=== PATIENT | female | born 1955 | race Caucasian/White ===

== ENCOUNTER → 2018-12-26 17:24 | Outpatient (CLI) | payer OTHER, SELFPAY ==
[2018-12-26 13:47] VITALS: BMI 35.6
[2018-12-30 17:08] LABS: HPV APTIMA, High Risk Negative (Negative)
== END ==
PROVIDERS: Family Provider Preventive Medicine Occupational Medicine; PCP Preventive Medicine Occupational Medicine; Referring Provider Obstetrics & Gynecology; Visit Provider Obstetrics & Gynecology
DX: Z12.4 Encounter for screening for malignant neoplasm of cervix (principal)
CPT/HCPCS: 87624; 88175; G0145

== ENCOUNTER → 2019-01-13 08:44 | Outpatient (CLI) | payer OTHER, SELFPAY ==
[2018-12-26 13:47] VITALS: BMI 35.6
[2019-01-13 10:11] LABS: Cholesterol 284 mg/dL (200); Follicle Stimulating Hormone 46.5 mIU/mL; Glucose 91 mg/dL (74-106); High Density Lipoprotein 53 mg/dL; T4 Free Direct 1.38 ng/dL (0.76-1.46); Thyroid Stim Hormone (TSH) 1.94 uIU/mL (0.358-3.74); Triglycerides 140 mg/dL; Very Low Density Lipoprotein 28 mg/dL (5-40)
[2019-01-16 10:03] LABS: Testosterone Free 20.3 pg/mL (0.0-4.2)
[2019-01-17 12:22] LABS: Vitamin D 1,25-Dihydroxy 36.9 pg/mL (19.9-79.3)
== END ==
PROVIDERS: Family Provider Preventive Medicine Occupational Medicine; PCP Preventive Medicine Occupational Medicine; Referring Provider Obstetrics & Gynecology; Visit Provider Obstetrics & Gynecology
DX: Z01.411 Encounter for gynecological examination (general) (routine) with abnormal findings (principal); N95.1 Menopausal and female climacteric states
CPT/HCPCS: 36415; 80061; 82652; 82670; 82947; 83001; 84402; 84439; 84443

== ENCOUNTER → 2019-08-07 08:39 | Outpatient (CLI) | payer MEDICARE, OTHER, SELFPAY ==
[2019-08-03 09:58] VITALS: BMI 35.1
[2019-08-07 09:40] LABS: AST(SGOT) 19 U/L (15-37); Alanine Aminotransfer ALT/SGPT 34 U/L (13-56); Albumin, Serum 3.6 g/dL (3.2-5.0); Alkaline Phosphatase 54 U/L (45-117); Bilirubin, Direct 0.15 mg/dL (0.00-0.30); Cholesterol 286 mg/dL (200); Globulin 3.4 g/dL (2.2-4.2); High Density Lipoprotein 63 mg/dL; Triglycerides 119 mg/dL; Very Low Density Lipoprotein 24 mg/dL (5-40)
== END ==
PROVIDERS: Family Provider Preventive Medicine Occupational Medicine; PCP Preventive Medicine Occupational Medicine; Referring Provider Internal Medicine Cardiovascular Disease; Visit Provider Internal Medicine Cardiovascular Disease
DX: E78.00 Pure hypercholesterolemia, unspecified (principal)
CPT/HCPCS: 36415; 80061; 80076

== ENCOUNTER → 2019-08-08 08:48 | Outpatient (CLI) | payer MEDICARE, OTHER, SELFPAY ==
[2019-08-03 09:58] VITALS: BMI 35.1
== END ==
PROVIDERS: Family Provider Preventive Medicine Occupational Medicine; PCP Preventive Medicine Occupational Medicine; Referring Provider Internal Medicine Cardiovascular Disease; Visit Provider Internal Medicine Cardiovascular Disease
DX: I47.1 Supraventricular tachycardia (principal); R00.1 Bradycardia, unspecified; R00.2 Palpitations
CPT/HCPCS: 93225; 93226

== ENCOUNTER → 2019-08-18 06:23 | Outpatient (CLI) | payer MEDICARE, OTHER, SELFPAY ==
[2019-08-03 09:58] VITALS: BMI 35.1
--- NOTE | 2019-08-18 06:24 | ECHOD_ITS ---
Reason For Study: Arrhythmia Procedure This was a 2D Doppler, Color Flow transthoracic echocardiogram. The exam was of adequate technical quality. Exam performed in department. Left Ventricle Normal LV size. Left ventricular systolic function is normal. The estimated ejection fraction is 65 %. No evidence for diastolic dysfunction. No regional wall motion abnormalities noted. Right Ventricle Normal RV size. Normal systolic function. Atria Normal left atrium. Normal right atrium. No doppler evidence for ASD. Mitral Valve There is mild mitral annular calcification. Extension of the mitral annular calcification onto the base of the posterior mitral valve leaflet. Mild (1+) mitral valve insufficiency. Tricuspid Valve Normal tricuspid valve. Mild tricuspid valve insufficiency. Right ventricular systolic pressure estimated to be 29 mmHg. Aortic Valve Trisinus/trileaflet aortic valve. Normal aortic valve. Pulmonic Valve The pulmonic valve is not well visualized. Trivial pulmonic valve insufficiency. Great Vessels Normal sized aortic root. Pericardium/Pleural No pericardial effusion. MMode/2D Measurements & Calculations LVIDd: 4.8 cm IVSd: 1.1 cm Ao root diam: 3.2 cm LVIDs: 2.9 cm LVPWd: 1.0 cm RVDd: 4.2 cm FS: 38.7 % LAV(MOD-bp): 57.6 ml LVAd ap4: 22.7 cm2 SV(MOD-sp4): 37.6 ml LAV(MOD-bp) Indexed: 30.1 ml/m2 EDV(MOD-sp4): 58.8 ml LAV(MOD-sp2): 76.3 ml EDV(sp4-el): 60.2 ml LAV(MOD-sp4): 43.2 ml LVAs ap4: 11.8 cm2 ESV(MOD-sp4): 21.2 ml ESV(sp4-el): 20.9 ml EF(MOD-sp4): 63.9 % EF(sp4-el): 65.3 % SV(sp4-el): 39.3 ml LA A4 area: 17.7 cm2 LA dimension(2D): 3.7 cm RA A4 area: 16.7 cm2 Doppler Measurements & Calculations MV E max james: 73.6 cm/sec Lat Peak E' James: 7.4 cm/sec Med Peak E' James: 7.0 cm/sec MV A max james: 61.5 cm/sec E/E' lat: 9.9 E/E' med: 10.6 MV E/A: 1.2 Ao V2 max: 148.8 cm/sec LV V1 max: 115.1 cm/sec PA V2 max: 80.2 cm/sec Ao max P.9 mmHg LV V1 max P.3 mmHg Ao V2 mean: 98.7 cm/sec Ao mean P.3 mmHg Ao V2 VTI: 35.3 cm PI end-d james: 74.2 cm/sec TR max james: 256.6 cm/sec TR max P.3 mmHg Interpretation Summary Left ventricular systolic function is normal. The estimated ejection fraction is 65 %. There is mild mitral annular calcification. Extension of the mitral annular calcification onto the base of the posterior mitral valve leaflet. Mild (1+) mitral valve insufficiency. Mild tricuspid valve insufficiency. Trivial pulmonic valve insufficiency. Right ventricular systolic pressure estimated to be 29 mmHg. No evidence for diastolic dysfunction. Ordering Physician: Luís Morse Referring Physician: Bob Snider Performed By: Hilda Kay, BLAKE, RVT
--- NOTE | 2019-08-18 10:44 | STRESSREP_ITS ---
Stress Test Report Date: 08-18-19 Procedure: Pharmacologic stress nuclear imaging study Indications: Palpitations; cardiac ectopy; PACs/PVCs; sinus bradycardia; PSVT Consent: Per the patient Procedure: The patient underwent pharmacologic (Regadenoson) evaluation with a peak heart rate of 81 beats per minute (52 %predicted maximal heart rate) and a peak blood pressure of 150/90 mmHg. The baseline ECG demonstrated sinus bradycardia: Nonspecific T wave abnormality. The peak pharmacologic ECG demonstrated continued nonspecific T wave abnormality. There were no cardiac dysrhythmias pretest, during pharmacologic infusion, or recovery. There was no complaint of chest discomfort during pharmacologic infusion or recovery. The examination was discontinued secondary to completion of protocol. Impression: 1. Pharmacologic (Regadenoson) evaluation 2. Peak pharmacologic ECG with continued nonspecific T wave abnormality. 3. There were no cardiac dysrhythmias pretest, during pharmacologic infusion, or recovery. 4. Nuclear images pending Myocardial perfusion imaging study: Technique: The patient was injected with 10.0 millicuries of technetium 99m Cardiolite and subsequently rest SPECT Cardiolite nuclear imaging was obtained in the horizontal long, vertical long, and short axis views. The patient underwent pharmacologic (Regadenoson) evaluation with a peak heart rate of 81 beats per minute (52 % percent predicted maximal heart rate) and a peak blood pressure of 150/90 mmHg. The patient was injected with 30.0 millicuries of technetium 99m Cardiolite and subsequently stress SPECT Cardiolite nuclear imaging was obtained in the horizontal long, vertical long, and short axis views. A gated Cardiolite study at peak stress was obtained. Interpretation: Rest and stress SPECT Cardiolite nuclear imaging status post realignment, normalization, and attenuation correction demonstrate relative uniform tracer uptake and myocardial perfusion appearing within normal limits. There is end systolic thickening and brightening. The gated Cardiolite study demonstrates myocardial thickening and inward wall motion. The reported LVEF is 77 %. Impression: 1. Rest and stress SPECT Cardiolite nuclear imaging demonstrate relative uniform tracer uptake and myocardial perfusion appearing within normal limits. 2. The gated Cardiolite study reports an LVEF of 77 %. This note was generated with [employer] software. It may contain incorrect words, spelling, and punctuation that were not noted in checking the note before signing.
== END ==
PROVIDERS: Family Provider Preventive Medicine Occupational Medicine; PCP Preventive Medicine Occupational Medicine; Referring Provider Internal Medicine Cardiovascular Disease; Visit Provider Internal Medicine Cardiovascular Disease
DX: I47.1 Supraventricular tachycardia (principal); I49.3 Ventricular premature depolarization; I49.1 Atrial premature depolarization; I49.49 Other premature depolarization; E78.2 Mixed hyperlipidemia; R00.1 Bradycardia, unspecified; R94.31 Abnormal electrocardiogram [ECG] [EKG]
CPT/HCPCS: 78452; 93017; 93306; A9500; A4216; J2785

== ENCOUNTER → 2019-09-20 13:35 | Outpatient (CLI) | payer MEDICARE, OTHER, SELFPAY ==
[2019-08-03 09:58] VITALS: BMI 35.1
[2019-09-20 15:55] LABS: AST(SGOT) 23 U/L (15-37); Alanine Aminotransfer ALT/SGPT 33 U/L (13-56); Albumin, Serum 4.2 g/dL (3.2-5.0); Alkaline Phosphatase 49 U/L (45-117); Bilirubin, Direct 0.14 mg/dL (0.00-0.30); Cholesterol 161 mg/dL (200); Globulin 3.1 g/dL (2.2-4.2); High Density Lipoprotein 59 mg/dL; Protein, Total 7.3 g/dL (6.4-8.2); Triglycerides 98 mg/dL; Very Low Density Lipoprotein 20 mg/dL (5-40)
== END ==
PROVIDERS: Family Provider Preventive Medicine Occupational Medicine; PCP Preventive Medicine Occupational Medicine; Referring Provider Internal Medicine Cardiovascular Disease; Visit Provider Internal Medicine Cardiovascular Disease
DX: E78.2 Mixed hyperlipidemia (principal)
CPT/HCPCS: 36415; 80061; 80076

== ENCOUNTER → 2019-11-03 12:30 | Outpatient (CLI) | payer MEDICARE, OTHER, SELFPAY ==
[2019-08-03 09:58] VITALS: BMI 35.1
[2019-11-03 13:40] LABS: Hematocrit 41.9 % (37-47); Hemoglobin 13.7 g/dL (12.0-15.0); Mean Corp Hgb Conc 32.7 g/dL (32-36); Mean Corpuscular Hgb 30.2 pg (27.0-32.0); Mean Corpuscular Volume 92.3 fL (81-99); Mean Platelet Vol. 10.8 fl (6.2-12.0); Platelet Count 270 K/mm3 (150-450); RBC Distribution Width CV 12.1 % (11.6-14.6); RBC Distribution Width SD 41.2 fl (35.1-43.9); Red Blood Count 4.54 M/mm3 (4.2-5.4); White Blood Count 7.5 K/mm3 (4.4-11.0)
[2019-11-03 14:24] LABS: Vitamin D,25 Hydroxy 31.2 ng/mL (29.95-100.01)
[2019-11-03 14:25] LABS: Thyroid Stim Hormone (TSH) 1.47 uIU/mL (0.358-3.74)
== END ==
PROVIDERS: PCP Preventive Medicine Occupational Medicine; Referring Provider Nurse Practitioner Family; Visit Provider Nurse Practitioner Family
DX: E55.9 Vitamin D deficiency, unspecified (principal); D64.9 Anemia, unspecified; R42 Dizziness and giddiness; R55 Syncope and collapse; R00.1 Bradycardia, unspecified; M70.61 Trochanteric bursitis, right hip
CPT/HCPCS: 36415; 82306; 84443; 85027; 97110

== ENCOUNTER 2019-11-13 09:00 | Outpatient (RCR) | payer MEDICARE, OTHER, SELFPAY ==
[2019-08-03 09:58] VITALS: BMI 35.1
--- NOTE | 2019-09-22 10:00 | HP.PTEVAL ---
Patient's Visit Information SHAYLA RODRIGUEZ is a 64 year old F referred to Physical Therapy by Anoop Tavarez with a diagnosis of R hip bursitis. Date of Evaluation: 09/22/19 Physical Therapist: Jose Luis Yates, PT, ATC - Visit Plan Frequency: 2x /Week Duration: 2 Weeks Plan: R IT band DTR, foam roller, strengthening, US, and HEP - Subjective Findings: Pt reports R hip pain for 10 months. Pt reports the pain was never this bad, but has progressively worsened. Pt reports she finally went to her doctor 3 months ago and was given steroids. No positive effects, so she was referred to orthopedic. Pt reports she has had xrays of the L/S and hip, which revealed DDD in L4-5. Pt reports she has never had LBP, and notes she never heard any of the results about her hip xrays. Pt reports she does have a history of sciatica, and notes this pain is no as bad as that. Pt reports she cant sleep on her R side anymore because the pain will wake her up. Pt reports prolonged walking increases her pain. Pt reports she must take pain meds to sleep at night. Pt reports she has fallen a lot due to blacking out. 0/10 pain at rest, 8/10 pain at worst (getting into car) - Pain R hip Pain Intensity (Out of 10): 0 Pain Intensity Range: 8 - Objective Neuro: B LE sensation is WNL to light touch. B patellar reflex= 2/3. Palpation: Pt is very sore on the R greater trochanter. No obvious deformity present. MMT: R hip is grossly 4/5 and painful with most testing. L LE grossly 5/5 throughout. ROM: B LE's are WFL. Special tests: Pos pirifomis and IT band tests - Goals Goal 1:: Decrease R hip pain x 50% to aid with sleep Goal Time Frame: 2-4 Weeks Goal 2:: Increase R LE strength x 1 grade to aid with IADL's Goal Time Frame: 2-4 Weeks Goal 3:: I with HEP Goal Time Frame: 2-4 Weeks - Rehabilitation Potential Physical Therapy Diagnosis: R hip pain, limited walking ability, and decreased flexibility secondary to R hip greater trocanteric bursitis Rehabilitation Potential: Good - Anticipated Interventions Patient/Client Instruction: Educate patient on: Condition, Plan of Care For the Purpose of:: To improve self management Therapeutic Exercise to Include: Strength training, Endurance training, Balance training, Flexibilty training, Dynamic Lumbar Stabilization For the Purpose of:: To decrease pain, To increase ROM, To improve muscle performance and motor function Cryotherapy (ice pack, ice massage): Yes Ultrasound (thermal/non thermal): Yes For the Purpose of:: To decrease pain Thank you for the opportunity to evaluate your patient. For Medicare and Medicare HMO plans, please review the plan of care and approve it. It will need to be FAXED BACK to us at [phone] for Medicare purposes. For Medicare only, by signing this I certify the plan of care. Please let me know if there are questions or concerns regarding this plan of care. Physician Signature: Date:
--- NOTE | 2019-11-06 09:51 | HP.PTEVAL2_ITS ---
Patient's Visit Information SHAYLA RODRIGUEZ is a 64 year old F referred to Physical Therapy by Anoop Tavarez with a diagnosis of Dizzyness /Giddyness.. Date of Evaluation: 11/06/19 Physical Therapist: Skip Burris, KAYLENT, OCS, CSCS - Visit Plan Frequency: 1x/Week Duration: 2-4 Weeks Plan: Weekly as helpful for monitor BD ex effectiveness(recheck positional) and attempt VOR if not improving. Back to doctor if not improved after 3 visits. May need some home balance ex. Positional and adaptation ex are appropriate for trial. Suspiciaous of vertebral artery despite - VAT due to positioning that causes her issues( on back with one pillow for 3-4 minutes) - Subjective Findings: Getting spinning when turning in bed. Tried R Benja on Wednesday but could not sleep in chair. Lied on couch that night on L side and felt poorly upon getting up to go to bathroom. Dizzyness has been present years unable to sleep on back. Looking up and down also have made her dizzy quickly. No constant dizzyness in 10 years. Avoids spinning adn looking up and down quickly. Gets dizzy if lies on back for 3-4 minutes until changes position, not on side. - Objective Objective: Walks well and trasnfers I. Cervical ROM WFL rotations slightly limited B, no pain. - B hallpike munira and - roll test. some dizzyness coming up both HD. Oculomotor: no nystagmus with gaze or head shake, normal convergence. - skew eye deviation., - ocular tilt. Pursuit adn saccades are asymptomatic. VOR gives slight symptoms transiently but not bad. - head thrust. MSQ, no positions made her dizzy except slightly up form B HD. - VAT B - Balance Scores Functional Gait Assessment Score: 27 % Disability: 10.0000 CATSIB Score (Max score 120 seconds): 93 - Goals Goal 1:: abolish vertigo Goal Time Frame: 2-4 Weeks Goal 2:: Pt feel balance and vertigo 99% better adn manageable. Goal Time Frame: 2-4 Weeks - Rehabilitation Potential Physical Therapy Diagnosis: Dizzyness Rehabilitation Potential: Fair - Anticipated Interventions Patient/Client Instruction: Educate patient on: Condition, Plan of Care For the Purpose of:: To increase tolerance to activity/condition/position Therapeutic Exercise to Include: Balance training, Neuromotor development For the Purpose of:: To increase tolerance to activity/condition/position Thank you for the opportunity to evaluate your patient. For Medicare and Medicare HMO plans, please review the plan of care and approve it. It will need to be FAXED BACK to us at [phone] for Medicare purposes. For Medicare only, by signing this I certify the plan of care. Please let me know if there are questions or concerns regarding this plan of care. Physician Signature: Date:
--- NOTE | 2019-11-10 10:33 | HP.PTDCSUM ---
HP - PT D/C Summary It has been my pleasure to treat SHAYLA RODRIGUEZ under orders from Ester Asif, CHIDI-C, for the diagnosis of R hip bursitis for a total of 14 visit(s). Discharge Date: Please see the following information for a summary of their discharge status. - Subjective Subjective: I am a little sore today - Pain R hip Pain Intensity (Out of 10): 3 GUERRERO Pain Intensity (Out of 10): 3 - Overall Improvement % Improvement: 90 - Objective Objective/Function: R LE MMT is now 5/5 throughout. Pt is I with HEP. Pain ranges from 0-3/10. Rx goals achieved - Goals Goal 1:: Decrease R hip pain x 50% to aid with sleep Goal Progress: Goal Met Goal 2:: Increase R LE strength x 1 grade to aid with IADL's Goal Progress: Goal Met Goal 3:: I with HEP Goal Progress: Goal Met - Plan Plan: Discharge - D/C Information If there are questions or concerns regarding this patient's physical therapy, please feel free to call me at [phone]. Thank you for the referral of this patient. Sincerely, Jose Luis Yates, PT, ATC
== END 2019-11-13 19:00 | disposition home or self-care (01) ==
LOC: PT 09:00
PROVIDERS: Family Provider Preventive Medicine Occupational Medicine; PCP Preventive Medicine Occupational Medicine; Referring Provider Nurse Practitioner Family; Visit Provider Nurse Practitioner Family
DX: M70.61 Trochanteric bursitis, right hip (principal)
CPT/HCPCS: 97035; 97110; 97161; 97164; 97530

== ENCOUNTER → 2020-03-28 08:18 | Outpatient (CLI) | payer MEDICARE, OTHER, SELFPAY ==
[2020-02-19 13:55] VITALS: BMI 35.1
[2020-03-28 10:14] LABS: AST(SGOT) 17 U/L (15-37); Alanine Aminotransfer ALT/SGPT 29 U/L (13-56); Albumin, Serum 3.9 g/dL (3.2-5.0); Alkaline Phosphatase 50 U/L (45-117); Bilirubin, Direct 0.19 mg/dL (0.00-0.30); Cholesterol 146 mg/dL (200); Globulin 3.2 g/dL (2.2-4.2); High Density Lipoprotein 58 mg/dL; Protein, Total 7.1 g/dL (6.4-8.2); Triglycerides 119 mg/dL; Very Low Density Lipoprotein 24 mg/dL (5-40)
== END ==
PROVIDERS: PCP Preventive Medicine Occupational Medicine; Referring Provider Internal Medicine Cardiovascular Disease; Visit Provider Internal Medicine Cardiovascular Disease
DX: E78.2 Mixed hyperlipidemia (principal); E78.00 Pure hypercholesterolemia, unspecified
CPT/HCPCS: 36415; 80061; 80076

== ENCOUNTER → 2020-10-28 08:39 | Outpatient (CLI) | payer MEDICARE, OTHER, SELFPAY ==
[2020-02-19 13:55] VITALS: BMI 35.1
[2020-10-28 10:22] LABS: AST(SGOT) 22 U/L (15-37); Alanine Aminotransfer ALT/SGPT 41 U/L (13-56); Albumin, Serum 3.8 g/dL (3.2-5.0); Alkaline Phosphatase 53 U/L (45-117); Bilirubin, Direct 0.13 mg/dL (0.00-0.30); Cholesterol 164 mg/dL (200); Globulin 3.4 g/dL (2.2-4.2); High Density Lipoprotein 60 mg/dL; Protein, Total 7.2 g/dL (6.4-8.2); Triglycerides 102 mg/dL; Very Low Density Lipoprotein 20 mg/dL (5-40)
== END ==
PROVIDERS: PCP Preventive Medicine Occupational Medicine; Referring Provider Internal Medicine Cardiovascular Disease; Visit Provider Internal Medicine Cardiovascular Disease
DX: E78.00 Pure hypercholesterolemia, unspecified (principal); E78.2 Mixed hyperlipidemia
CPT/HCPCS: 36415; 80061; 80076

== ENCOUNTER → 2021-05-12 09:08 | Outpatient (CLI) | payer MEDICARE, OTHER, SELFPAY ==
[2021-05-12 10:08] LABS: AST(SGOT) 20 U/L (15-37); Alanine Aminotransfer ALT/SGPT 30 U/L (13-56); Albumin, Serum 3.8 g/dL (3.2-5.0); Alkaline Phosphatase 44 U/L (45-117); Bilirubin, Direct 0.12 mg/dL (0.00-0.30); Cholesterol 243 mg/dL (200); Globulin 3.2 g/dL (2.2-4.2); High Density Lipoprotein 52 mg/dL; Triglycerides 165 mg/dL; Very Low Density Lipoprotein 33 mg/dL (5-40)
== END ==
PROVIDERS: PCP Preventive Medicine Occupational Medicine; Referring Provider Internal Medicine Cardiovascular Disease; Visit Provider Internal Medicine Cardiovascular Disease
DX: E78.00 Pure hypercholesterolemia, unspecified (principal); E78.2 Mixed hyperlipidemia
CPT/HCPCS: 36415; 80061; 80076

== ENCOUNTER → 2021-07-15 08:28 | Outpatient (CLI) | payer MEDICARE, OTHER, SELFPAY ==
[2021-07-15 09:39] LABS: AST(SGOT) 13 U/L (15-37); Alanine Aminotransfer ALT/SGPT 21 U/L (13-56); Albumin, Serum 3.6 g/dL (3.2-5.0); Alkaline Phosphatase 56 U/L (45-117); Bilirubin, Direct 0.13 mg/dL (0.00-0.30); Cholesterol 248 mg/dL (200); Globulin 3.3 g/dL (2.2-4.2); High Density Lipoprotein 52 mg/dL; Protein, Total 6.9 g/dL (6.4-8.2); Triglycerides 140 mg/dL; Very Low Density Lipoprotein 28 mg/dL (5-40)
== END ==
PROVIDERS: PCP Preventive Medicine Occupational Medicine; Referring Provider Nurse Practitioner Family; Visit Provider Nurse Practitioner Family
DX: E78.2 Mixed hyperlipidemia (principal)
CPT/HCPCS: 36415; 80061; 80076

== ENCOUNTER → 2021-09-30 08:41 | Outpatient (CLI) | payer MEDICARE, OTHER, SELFPAY ==
[2021-09-30 09:32] LABS: Anion Gap 7 (5-15); BUN 18 mg/dL (7-18); BUN/Creat Ratio 21.9 RATIO (10-20); Calcium,Total 9.3 mg/dL (8.5-10.1); Chloride 110 mmol/L (98-107); Creatinine, Serum 0.82 mg/dL (0.55-1.02); EST Glomerular Filtration Rate 74 mL/min (>60); Est Glom Filt Rate - Afr Amer 89 mL/min (>60); Glucose 91 mg/dL (74-106); Potassium 4.2 mmol/L (3.5-5.1); Sodium Level 144 mmol/L (136-145)
== END ==
PROVIDERS: PCP Preventive Medicine Occupational Medicine; Referring Provider Nurse Practitioner Family; Visit Provider Nurse Practitioner Family
DX: I10 Essential (primary) hypertension (principal)
CPT/HCPCS: 36415; 80048

== ENCOUNTER → 2022-04-30 | Outpatient (CLI) | payer MEDICARE, OTHER, SELFPAY ==
[2022-04-30 11:35] LABS: AST(SGOT) 26 U/L (15-37); Alanine Aminotransfer ALT/SGPT 40 U/L (13-56); Albumin, Serum 3.9 g/dL (3.2-5.0); Alkaline Phosphatase 53 U/L (45-117); Bilirubin, Direct 0.11 mg/dL (0.00-0.30); Cholesterol 269 mg/dL (200); Globulin 3.5 g/dL (2.2-4.2); High Density Lipoprotein 52 mg/dL; Protein, Total 7.4 g/dL (6.4-8.2); Triglycerides 175 mg/dL; Very Low Density Lipoprotein 35 mg/dL (5-40)
== END | disposition home or self-care (01) ==
LOC: LAB 09:36
PROVIDERS: PCP Preventive Medicine Occupational Medicine; Visit Provider Nurse Practitioner Family
DX: E78.5 Hyperlipidemia, unspecified (principal); R79.89 Other specified abnormal findings of blood chemistry
CPT/HCPCS: 36415; 80061; 80076

== ENCOUNTER 2022-06-01 12:30 | Outpatient (RCR) | payer MEDICARE, OTHER, SELFPAY ==
--- NOTE | 2022-03-23 12:11 | HP.PTEVAL_ITS ---
Patient's Visit Information SHAYLA RODRIGUEZ is a 66 year old F referred to Physical Therapy by Dr. Bob Snider DO with a diagnosis of Fibromyalgia. Date of Evaluation: 03/19/22 Physical Therapist: Junior Martinez DPT - Visit Plan Frequency: 2x /Week Duration: 4 Weeks Plan: Start with aquatic therapy with focus on BLE ROM, graded exercises as tolerated. Progress slowly as she is hesitant with all mobility. - Subjective Pt. is here today for her initial evaluation with diagnosis of Fibromyalgia. Pt. reports a having a new diagnosis ~2 weeks. Pt. was trying Cymbalta with no relief. She reports continued walking and sitting, anything for too long bothers her. Pt. reports that she used walking more, but has had to alter. Shayla reports having pain in R hip, lateral thigh, R knee, and L hip at times. Pt. reports not leaving the house much secondary to pain, difficulty getting comfortable secondary to pain. Pt. reports pain fluctuates between her knee, hip and LE. Pt. reports also being hesitant to increase walking and to do exercises secondary to fear of increasing pain. No mech of injury noted. She reports seeing ortho for her hip and knee, with diagnosis of fibromyalgia. She has not doing much exercise due to fear of increased pain. Pt. She is hopeful to reduce symptoms in order to get back to prior level of function without increase in symptoms. - Pain R knee Pain Intensity (Out of 10): 8 Pain Intensity Range: 2 Comment: walking in 4 in the water R hip Pain Intensity (Out of 10): Unrated Pain Intensity Range: 0, 9 L hip Pain Intensity (Out of 10): Unrated Pain Intensity Range: 1, 9 - Objective POSTURE: Pt. has flexed posture in stance, equal iliac crest heights, slight lateral wt. shift to L side. PALPATION: Pt. has increased tenderness to L knee at medial and lateral aspect. Increased pain along IT band, pain at gluteal region and at greater trochanter. NEURO: normal sensation to light touch throughout BLEs. Pt. has normal DTR of B LEs. Pt. is able to rise on heels and toes without limitations, slight balance aide at wall required. ROM: LLE: full motion no pain no issues noted throughout LLE. RLE: ankle full motion without increase in symptoms. knee: 0-0-108 deg mild increase in L knee pain increased flexion. R hip: flexion 90 deg increase in lateral R hip pain (empty end feel), IR 5deg increase in R hip pain (stiffness noted), ER 45deg increase in lateral hip pain (stiffness noted). HS Length in 90/90 positioning: R 60deg, L 85deg. MMT: LLE 5-/5 throughout. RLE: ankle 5/5 throughout; knee ext 4/5, flexion 4+/5; hip: flexion 4-/5 , abd 4/5, ext 4+/5. - Balance/Special Test Scores Lower Extremity Functional Score: 19 - Goals Goal 1:: LTG: Pt. to be educated in both pool and land HEP. Goal Time Frame: 4-6 Weeks Goal 2:: STG: Pt. to sleep throughout the night without increase in symptoms. Goal Time Frame: 2-4 Weeks Goal 3:: LTG: pt. to ambulate with normal gait pattern for at least 500 feet with 0-2/10 pain in RLE. Goal Time Frame: 4-6 Weeks Goal 4:: LTG: Pt. to have 5/5 strength through out BLEs. Goal Time Frame: 4-6 Weeks Goal 5:: LTG: Pt. to complete all ADLs and IADLs without increase in symptoms. Goal Time Frame: 4-6 Weeks - Rehabilitation Potential Physical Therapy Diagnosis: Pt. has signs and symptoms consistent with fibromyalgia with multiple joint pain. Pt. has overall decreased mobility and tolerance to activities. I would like her to progress with graded exercises in order to progress back to all previous activities. Rehabilitation Potential: Good - Anticipated Interventions Patient/Client Instruction: Educate patient on: Condition, Plan of Care, Risk Factors, Benefits of Fitness Program For the Purpose of:: To improve decision making, To facilitate caregiver knowledge, To improve self management, To prevent re-injury, To improve ability to perform tasks related to life management, To improve tolerance to ADL's Therapeutic Exercise to Include: Strength training, Power training, Endurance training, Coordination, Body mechanics, Postural training, Flexibilty training, Gait and locomotor training, In an aquatic setting, Passive ROM, Dynamic Celestina mbar Stabilization For the Purpose of:: To decrease pain, To increase ROM, To improve nutrient delivery to tissue, To increase oxygenation perfusion, To improve muscle perform ance and motor function, To improve ability of physical actions for home/community/work/leisure, To improve gait and locomotor functions, To improve health of tissue, To decrease soft tissue restriction Ultrasound (thermal/non thermal): Yes For the Purpose of:: To decrease pain, To decrease swelling/inflammation, To increase ROM, To improve muscle performance and motor function Thank you for the opportunity to evaluate your patient. For Medicare and Medicare HMO plans, please review the plan of care and approve it. It will need to be FAXED BACK to us at [phone] for Medicare purposes. For Medicare only, by signing this I certify the plan of care. Please let me know if there are questions or concerns regarding this plan of care. Physician Signature: Date:
--- NOTE | 2022-04-20 12:36 | HP.PTREVAL_ITS ---
Dr. Bob Snider, DO, It has been my pleasure to treat SHAYLA RODRIGUEZ over the last 8 visits for Fibromyalgia. Please see the progress note below for an update on the physical therapy plan of care! Subjective: Pt. reports overall not much difference with use of pool therapy. Pt. reports overall her symptoms are a little bit better, but is still having symptoms. Objective/Function: Pt. reports overall doing well with use of OTC, but without the meds she is in a lot of pain. She is still using cane for longer walks for both balance and pain control. IADLS and ADLs both cause pain, but is tolerate her symptoms. GAIT: pt. ambulated 500' with cane. She had decent tolerance with R leg, 2/10 pain in hip and knee. She reports R hip reduces if she turns in L foot. Not sure why this occurs. Pt. had some mild lateral hip translation and increased R trunk rotation during L swing phase, (lack of R hip extension). MMT: LLE 5/5 throughout; RLE: ankle and knee 5/5; hip: flexion 5-/5, ext 4/5, abd 3-/5 limited by pain. Core strength- poor+. ROM: LLE full motion, RLE ankle full, knee full, R hip: flexion 1110deg, abd 45deg passively increased pain with hip IR 15deg, ER 20deg increase lateral hip pain as well. - slump test, + obers test, pain with palpation of R greater trochanter and R IT band. Plan Plan: I talked extensively with Mary about her symptoms and her limitations. I talked to her about R hip weakness, especially with abductors and rotators. She is painful along her IT band and greater trochanter, but this does not account for her ankle pain and intermittent symptoms. She is planning to follow up with shower doors and panels fabricator then back to PT if determined appropriate. I will put her chart on hold and she will return if PT determine appropriate. Balance/Gait/Functional tests - Balance/Special Test Scores Lower Extremity Functional Score: 23 Goals Goal 1:: LTG: Pt. to be educated in both pool and land HEP. Goal Time Frame: 4-6 Weeks Goal Progress: Progressing Goal 2:: STG: Pt. to sleep throughout the night without increase in symptoms. Goal Time Frame: 2-4 Weeks Goal Progress: Progressing Goal 3:: LTG: pt. to ambulate with normal gait pattern for at least 500 feet with 0-2/10 pain in RLE. Goal Time Frame: 4-6 Weeks Goal 4:: LTG: Pt. to have 5/5 strength through out BLEs. Goal Time Frame: 4-6 Weeks Goal Progress: Progressing Goal 5:: LTG: Pt. to complete all ADLs and IADLs without increase in symptoms. Goal Time Frame: 4-6 Weeks Goal Progress: Not Progressing Anticipated Interventions Patient/Client Instruction: Educate patient on: Condition, Plan of Care, Risk Factors, Benefits of Fitness Program For the Purpose of:: To improve decision making, To facilitate caregiver knowledge, To improve self management, To prevent re-injury, To improve ability to perform tasks related to life management, To improve tolerance to ADL's Therapeutic Exercise to Include: Strength training, Power training, Endurance training, Coordination, Body mechanics, Postural training, Flexibilty training, Gait and locomotor training, In an aquatic setting, Passive ROM, Dynamic Lumbar Stabilization For the Purpose of:: To decrease pain, To increase ROM, To improve nutrient delivery to tissue, To increase oxygenation perfusion, To improve muscle performance and motor function, To improve ability of physical actions for home/community/work/leisure, To improve gait and locomotor functions, To improve health of tissue, To decrease soft tissue restriction Ultrasound (thermal/non thermal): Yes For the Purpose of:: To decrease pain, To decrease swelling/inflammation, To increase ROM, To improve muscle performance and motor function Please do not hesitate to contact me at [phone] by phone or if you have questions or concerns regarding this new plan of care! Sincerely, Junior Martinez DPT
== END 2022-06-01 19:00 | disposition home or self-care (01) ==
LOC: PT 12:30
PROVIDERS: PCP Preventive Medicine Occupational Medicine; Referring Provider Preventive Medicine Occupational Medicine; Visit Provider Preventive Medicine Occupational Medicine
DX: M25.50 Pain in unspecified joint (principal); M79.7 Fibromyalgia
CPT/HCPCS: 97035; 97110; 97113; 97140; 97161; 97164; 97530

== ENCOUNTER → 2022-11-04 | Outpatient (CLI) | payer MEDICARE, OTHER, SELFPAY ==
[2022-11-04 09:20] LABS: AST(SGOT) 19 U/L (15-37); Alanine Aminotransfer ALT/SGPT 35 U/L (13-56); Albumin, Serum 3.7 g/dL (3.2-5.0); Alkaline Phosphatase 52 U/L (45-117); Bilirubin, Direct 0.12 mg/dL (0.00-0.30); Cholesterol 261 mg/dL (200); Globulin 3.4 g/dL (2.2-4.2); High Density Lipoprotein 53 mg/dL; Protein, Total 7.1 g/dL (6.4-8.2); Triglycerides 171 mg/dL; Very Low Density Lipoprotein 34 mg/dL (5-40)
== END | disposition home or self-care (01) ==
PROVIDERS: Internal Medicine Cardiovascular Disease; PCP Preventive Medicine Occupational Medicine; Referring Provider Internal Medicine Cardiovascular Disease; Visit Provider Internal Medicine Cardiovascular Disease
DX: E78.2 Mixed hyperlipidemia (principal)
CPT/HCPCS: 36415; 80061; 80076

== ENCOUNTER 2023-11-26 10:00 | Outpatient (RCR) | payer MEDICARE, OTHER, SELFPAY ==
--- NOTE | 2023-10-22 09:24 | HP.PTEVAL_ITS ---
Patient's Visit Information Visit Information Visit Information: SHAYLA RODRIGUEZ is a 68 year old F referred to Physical Therapy by Dr. Bob Snider DO with a diagnosis of vertigo. Date of Evaluation: 10/22/23 Physical Therapist: Skip Burris, DPT, OCS, CSCS Visit Plan Frequency: 1x/Week Duration: 4-6 Weeks Plan: weekly x 4-6 as needed for 1. positonal treatments and ex if needed 2. oculomotor and msq if needed and treat accordingly. Subjective Subjective: I am dizzy alot of the time described as lightheaded but spinning 2- 3 x in last year. Lightheaded for a couple years. 3 episodes of spinning in last 6 months one looking up and sitting up from bed. She has to be careful how she gets out of bed. Sleeps lying down in bed and has to move around. Usually the increase lasts until she gets to a new position. Sometimes get sparkles in eyes. Has heart doctor and does not think this is heart related. Sleep is OK most of time. Activities are normal but has to be careful looking up. Changes things but does not avoid anything. Needs to have dental work done but cannot lie down. Not employed. Objective Objective: Walks into PT I without LOB or AD. Transfers easily without UE. Hesitant with head movement but able. Steps are reciprocal with one rail. cervical AROM is WFL and without pain or dizzyness but hesitant to look up while walking. UE aROM is WFL and strength is symmetrical. - R Hallpike munira. + L hallpike munira quick possibly up torsional nystagmus and lightheadedness that passes. Treated with modified tam and then better. Balance/Special Test Scores Functional Gait Assessment Score: 27 % Disability: 10.0000 Dizziness Score: 26 Goals Goal 1:: Abolish dizzy/lightheaded feeling with head movement. Goal Time Frame: 4-6 Weeks Goal 2:: Pt feel 100% back to normal Goal Time Frame: 4-6 Weeks Goal 3:: Walks with head tilting up without hesitation Goal Time Frame: 4-6 Weeks Goal 4:: DHI score 2 or less. Goal Time Frame: 4-6 Weeks Rehabilitation Potential Physical Therapy Diagnosis: Possible BPPV and related symptoms and deficits with care of activity and frustration. Rehabilitation Potential: Good Anticipated Interventions Patient/Client Instruction: Educate patient on: Condition and Plan of Care For the Purpose of:: To decrease pain, To increase ROM, To improve nutrient delivery to tissue, To improve muscle performance and motor function and To improve gait and locomotor functions Therapeutic Exercise to Include: Balance training and Gait and locomotor training For the Purpose of:: To increase tolerance to activity/condition/position Text: Thank you for the opportunity to evaluate your patient. For Medicare and Medicare HMO plans, please review the plan of care and approve it. It will need to be FAXED BACK to us at [phone] for Medicare purposes. For Medicare only, by signing this I certify the plan of care. Please let me know if there are questions or concerns regarding this plan of care. Physician Signature: Date:
--- NOTE | 2023-11-26 10:17 | HP.PTDCSUM ---
Discharge Summary D/C summary: It has been my pleasure to treat SHAYLA RODRIGUEZ referred by Dr. Bob Snider DO, with the diagnosis of vertigo for a total of 3 visit(s). Discharge Date: 11/26/23 Please see the following information for a summary of their discharge status. Subjective Subjective: Overall feeling much better and can lie on back for 15 minutes but still get nauseous wavy feeling and has to roll on side. No other dizzyness during the day. , does feel like floating sometimes during the day. Balance feels oK most of the time. To doctor in 6 months. Doing exercises at home and feels good until she stopped adn then 3-4 seconds at 2-3/10 Overall Improvement % Improvement: 85 Objective Objective/Function: - B hallpike munira FGA is good VOR is 60 sec only 2/10 dizzyness for 1-3 seconds, VOR x 2 H and V 30 seconds. 1-3 seconds mild dizzyness. sitting up from gravity dependent position gives her quick floaty feeling for 2-4 seconds. Goals Goal 1:: Abolish dizzy/lightheaded feeling with head movement. Goal Progress: 85% Goal 2:: Pt feel 100% back to normal Goal Progress: 85% Goal 3:: Walks with head tilting up without hesitation Goal Progress: Goal Met Goal 4:: DHI score 2 or less. Goal Progress: Progressing Plan Plan: d/c D/C Information Discharge Comments: Doing well and still has some dizzyness that maybe gravity dependent hypotensive but good otherwise. d/c sentence: If there are questions or concerns regarding this patient's physical therapy, please feel free to call me at [phone]. Thank you for the referral of this patient. Sincerely, Skip Burris, DPT, OCS, CSCS Balance/Gait/Functional tests Balance/Special Test Scores Functional Gait Assessment Score: 30 % Disability: 0 Dizziness Score: 6 Improvement % Improvement: 85
== END 2023-11-26 19:00 | disposition home or self-care (01) ==
LOC: PT 10:00
PROVIDERS: PCP Preventive Medicine Occupational Medicine; Referring Provider Preventive Medicine Occupational Medicine; Visit Provider Preventive Medicine Occupational Medicine
DX: R42 Dizziness and giddiness (principal)
CPT/HCPCS: 97161; 97530